=== PATIENT | male | born 1970 | race Caucasian/White ===

== ENCOUNTER 2022-10-22 08:19 | Emergency (ER) | payer BC, SELFPAY ==
[2022-10-22 08:27] VITALS: BP 150/85; PULSE 106; RESP 20; TEMP 37.5; O2SAT 95; BMI 26.6
--- NOTE | 2022-10-22 08:51 | ED_ITS ---
HPI - General Adult General Chief complaint: Fever Stated complaint: extremely hot / cold Time Seen by Provider: 10/22/22 08:26 Source: patient Mode of arrival: ambulatory Limitations: no limitations History of Present Illness HPI narrative: 52-year-old male coming in today concerned that ?my internal thermometer is off?. He states that for about 1 week now he has been cycling between feeling hot and sweaty and having the chills. Does not happen every day he says, however has occurred on most days. He states that he gets really chilled right before bed so he covers up and then wakes up in a pool of sweat. This also occurs during the day when he feels very cold and then feels very hot. He states that his appetite has been normal, no weight changes. He denies any skin or hair changes. He denies nausea or vomiting. No cough or chest pain. He denies any abdominal discomfort. He denies any difficulty with urination. No changes in his bowel habits. He states that he sees a doctor regularly has g enerally been healthy. He does not take any medications. He denies any family history of illnesses that he is aware of, states that parents and grandparents have all been very healthy. He denies any drug use including tobacco. States that aside from waking up drenched in sweat his sleep has been normal. He denies any recent traveling. Has had a leg surgery in the past for a broken leg when he was in [place], no other surgeries. Related Data Allergies Allergy/AdvReac Type Severity Reaction Status Date / Time No Known Drug Allergies Allergy Verified 10/22/22 08:27 Review of Systems Status of ROS: Reports: 10 or more systems reviewed and unremarkable except as noted in History and below [facility] Social History Smoking Status: Never smoker Do you use any of these nicotine containing products: None Second hand tobacco smoke exposure: No How often do you have a drink containing alcohol: 2-3 times a week How many standard drinks containing alcohol do you have on a typical day: 1 or 2 How often do you have six or more drinks on one occasion: Monthly AUDIT-C Alcohol total score: 5 Non-prescribed substance use: denies use service: No Exam Narrative: Exam Narrative: Well-nourished well-developed patient in no acute distress. Alert and oriented. Answers questions appropriately. Mood and affect are appropriate. Thoughts are goal oriented and rational. No tangential or magical thinking noted. Patient speaks in full sentences without needing to catch their breath. HEENT: Normocephalic atraumatic. Pupils are equally round reactive to light. Extraocular muscles are intact. Conjunctivae are moist without any icterus noted. Moist mucous membranes. Posterior pharynx is normal. Neck is soft without any lymphadenopathy or thyromegaly. No masses are appreciated. Cardiovascular: Heart is regular rate and rhythm S1 and S2 are present without any murmurs. Lungs: Clear to auscultation bilaterally no wheezes rhonchi or rales are appreciated. Patient takes deep breaths without any discomfort. Abdomen: Soft and nontender nondistended with normal bowel sounds. No guarding or rebound. No masses or organomegaly appreciated. Extremities: Bilateral lower extremities are without edema. Normal DP and PT pulses. Skin: Well perfused without any obvious rashes. Const: Vital Signs, click to edit/add: Vital Signs - 24 hr 10/22/22 08:27 10/22/22 09:13 10/22/22 09:15 Temperature 99.5 F 99.5 F Pulse Rate [Pulse Oximeter] 106 H 80 Respiratory Rate 20 20 Blood Pressure 126/82 Blood Pressure [Le ft Upper Arm] 150/85 H Blood Pressure [Ri ght Arm] 126/82 Pulse Oximetry 95 95 Oxygen Delivery Me thod Room Air Room Air 10/22/22 09:30 Temperature Pulse Rate [Pulse Oximeter] Respiratory Rate Blood Pressure 135/83 Blood Pressure [Le ft Upper Arm] Blood Pressure [Ri ght Arm] Pulse Oximetry Oxygen Delivery Me thod Course Course Hospital Course: Labs were drawn. Sodium slightly low therefore IV fluids were started. Remainder of lab work unremarkable aside from elevated CRP and sed rate. Patient remained hemodynamically stable. Vital Signs Vital signs: Initial Vital Signs Temperature 99.5 F 10/22/22 08:27 Temperature Source Temporal Artery Scan 10/22/22 08:27 Pulse Rate 106 H 10/22/22 08:27 Pulse Rhythm Regular 10/22/22 08:27 Respiratory Rate 20 10/22/22 08:27 Blood Pressure 150/85 H 10/22/22 08:27 Blood Pressure Mean 106 H 10/22/22 08:27 Blood Pressure Position Supine 10/22/22 08:27 Pulse Oximetry 95 10/22/22 08:27 Oxygen Delivery Method Room Air 10/22/22 08:27 Vital Signs Temperature 99.5 F 10/22/22 08:27 Pulse Rate 106 H 10/22/22 08:27 Respiratory Rate 20 10/22/22 08:27 Blood Pressure 150/85 H 10/22/22 08:27 Pulse Oximetry 95 10/22/22 08:27 Oxygen Delivery Method Room Air 10/22/22 08:27 Temperature 99.5 F 10/22/22 09:13 Pulse Rate 80 10/22/22 09:13 Respiratory Rate 20 10/22/22 09:13 Blood Pressure 135/83 10/22/22 09:30 Pulse Oximetry 95 10/22/22 09:13 Oxygen Delivery Method Room Air 10/22/22 09:13 Medical Decision Making MDM Narrative Medical decision making narrative: 52-year-old male with episodes of chills and diaphoresis, elevated inflammatory markers. Question viral infection. Tick-borne illness, lines these in [facility] pending. We discussed hydration and rest in the meantime. We discussed reasons for follow-up. Patient was in agreement had no other questions. Lab Data Lab results reviewed: Yes I reviewed the patient's lab results Labs: Lab Results 10/22/22 10/22/22 Range/Units 08:56 09:05 WBC 9.62 (4.50-11.00) K/uL RBC 4.47 (4.30-5.90) m/uL Hgb 12.6 L (13.5-17.5) gm/dL Hct 38.0 (37.0-53.0) % MCV 85 (80-100) fL MCH 28 (26-34) pg MCHC 33 (32-36) gm/dL RDW Coeff of Raz 12.2 (11.5-15.5) % Plt Count 436 (140-440) K/uL Neut % (Auto) 83.9 H (42.0-72.0) % Lymph % (Auto) 8.7 L (20-44) % [place] % (Auto) 6.8 (0.0-11.0) % Eos % (Auto) 0.3 (0.0-7.0) % Baso % (Auto) 0.1 (0.0-3.0) % Neut # (Auto) 8.10 H (1.7-7.0) K/uL Lymph # (Auto) 0.80 L (0.90-2.90) K/uL [place] # (Auto) 0.70 (0.00-0.90) K/UL Eos # (Auto) 0.03 (0.00-0.50) K/uL Baso # (Auto) 0.01 (0.00-0.30) K/uL ESR 85 H (2-15) mm/hr Sodium 132 L (135-149) mmol/L Potassium 3.9 (3.6-5.1) mmol/L Chloride 97 (96-114) mmol/L Carbon Dioxide 25 (20-32) mmol/L BUN 7 (7-30) mg/dL Creatinine 0.6 (0.5-1.5) mg/dL Estimated Creat Clear 134.65 Estimated GFR 116 ml/min Glucose 159 H (60-115) mg/dL Lactate 1.1 (0.5-1.9) mmol/L Calcium 9.5 (8.4-10.6) mg/dL Total Bilirubin 0.9 (0.1-1.5) mg/dL Direct Bilirubin 0.3 (0.0-0.5) mg/dL AST 42 H (12-35) U/L ALT 38 (4-50) U/L Alkaline Phosphatase 91 (40-150) U/L C-Reactive Protein 8.1 H (0.5-1.0) mg/dL Total Protein 8.1 (6.0-8.3) g/dL Albumin 4.2 (3.3-5.0) g/dL TSH 2.080 (0.270-4.20) uIU/mL Urine Color Yellow (Yellow) Urine Appearance Clear (Clear) Urine pH 8.0 (5.0-8.5) Ur Specific Bern 1.015 (1.000-1.030) Urine Protein Trace A (Negative) Urine Glucose (UA) Negative (Negative) Urine Ketones Negative (Negative) Urine Blood Negative (Negative) Urine Nitrite Negative (Negative) Urine Bilirubin Negative (Negative) Urine Urobilinogen 0.2 (0.2-1.0) Ur Leukocyte Esterase Negative (Negative) Urine RBC 0-2 (0-2) Urine WBC 0-2 (0-5) Ur Squamous Epith Cells Few (None-Few) Urine Bacteria None (None) SARS-CoV-2 (PCR) Negative SARS-CoV-2 (Negative) Discharge Plan Discharge Clinical Impression: Diaphoresis, Hyponatremia Patient Disposition: Home, Self-Care Condition: Stable Additional Instructions: Stay well hydrated and get plenty of rest. This is likely a viral infection. This should pass in the next week or 2. If it does not, follow up with primary care provider. Lastly, your sodium was slightly low today and that was replaced with IV fluids. Follow Up/Referrals: Provider,Not a Local [Primary Care Provider] - Stand Alone Forms: Balloon Info Instructions
[2022-10-22 09:05] LABS: Appearance Urine Clear (Clear); Bilirubin Urine Negative (Negative); Blood Urine Negative (Negative); Color Urine Yellow (Yellow); Glucose Urine Negative (Negative); Ketones Urine Negative (Negative); Leukocyte Esterase Urine Negative (Negative); Nitrite Urine Negative (Negative); Protein Urine Trace (Negative); Specific Gravity Urine 1.015 (1.000-1.030); Urobilinogen Urine 0.2 (0.2-1.0)
[2022-10-22 09:12] LABS: RBC Urine 0-2 (0-2); Squamous Epithelial Cell Urine Few (None-Few); WBC Urine 0-2 (0-5)
[2022-10-22 09:13] VITALS: BP 126/82; PULSE 80; RESP 20; TEMP 37.5; O2SAT 95
[2022-10-22 09:15] VITALS: BP 126/82
[2022-10-22 09:15] LABS: Lactate* 1.1 mmol/L (0.5-1.9)
[2022-10-22 09:21] LABS: Basophils Absolute Auto 0.01 K/uL (0.00-0.30); Basophils Percent Auto 0.1 % (0.0-3.0); Eosinophils Absolute Auto 0.03 K/uL (0.00-0.50); Eosinophils Percent Auto 0.3 % (0.0-7.0); Hemoglobin* 12.6 gm/dL (13.5-17.5); Immature Granulocytes Abs Auto 0.02 K/uL (0.00-0.30); Immature Granulocytes Pct Auto 0.2 %; Lymphocytes Percent Auto 8.7 % (20-44); Mean Corpuscular HGB Conc 33 gm/dL (32-36); Mean Corpuscular Hemoglobin 28 pg (26-34); Mean Corpuscular Volume 85 fL (80-100); Monocytes Percent Auto 6.8 % (0.0-11.0); Neutrophils Percent Auto 83.9 % (42.0-72.0); Platelet Count* 436 K/uL (140-440); RDW Coefficient of Variation % 12.2 % (11.5-15.5); Red Blood Count 4.47 m/uL (4.30-5.90); Slide Review Reflex No; White Blood Count* 9.62 K/uL (4.50-11.00)
[2022-10-22 09:30] VITALS: BP 135/83
[2022-10-22 09:36] LABS: Albumin* 4.2 g/dL (3.3-5.0); Chloride* 97 mmol/L (96-114); Sodium* 132 mmol/L (135-149)
[2022-10-22 09:37] LABS: Potassium* 3.9 mmol/L (3.6-5.1)
[2022-10-22 09:38] LABS: Creatinine* 0.6 mg/dL (0.5-1.5); Est. Creatinine Clearance* 134.65; Estimated Glomerular Filt Rate 116 ml/min
[2022-10-22 09:39] LABS: Alanine Aminotransferase* 38 U/L (4-50); Alkaline Phosphatase* 91 U/L (40-150); Aspartate Amino Transferase* 42 U/L (12-35); Bilirubin Direct* 0.3 mg/dL (0.0-0.5); Bilirubin Total* 0.9 mg/dL (0.1-1.5); Blood Urea Nitrogen* 7 mg/dL (7-30); Carbon Dioxide* 25 mmol/L (20-32); Total Protein* 8.1 g/dL (6.0-8.3)
[2022-10-22 09:40] LABS: Calcium* 9.5 mg/dL (8.4-10.6); Glucose* 159 mg/dL (60-115)
[2022-10-22 09:42] LABS: C Reactive Protein* 8.1 mg/dL (0.5-1.0)
[2022-10-22 09:53] LABS: SARS PCR* Negative SARS-CoV-2 (Negative)
[2022-10-22] MEDS: 0.9 % SODIUM CHLORIDE 1000 ml 1,000 ML IV (09:56)
[2022-10-22 10:13] LABS: Erythrocyte SedimentationRate* 85 mm/hr (2-15)
[2022-10-22 11:14] VITALS: BP 150/85; PULSE 90; RESP 20; TEMP 37.5
[2022-10-24 05:21] LABS: Anaplasma phagocyt PCR Not Detected; Babesia microti by PCR Not Detected; Babesia species by PCR Not Detected; Ehrlichia chaffeensis by PCR Not Detected; Ehrlichia ewingii/canis by PCR Not Detected; Ehrlichia muris-like by PCR Not Detected
== END 2022-10-22 11:10 | disposition home or self-care (01) ==
PROVIDERS: Emergency Provider Family Medicine
DX: R61 Generalized hyperhidrosis (principal); E87.1 Hypo-osmolality and hyponatremia
CPT/HCPCS: 36415; 80048; 80076; 81001; 83605; 84443; 85025; 85651; 86140; 86789; 87040; 87086; 87635; 87798; 96360; 99284; J7030

== ENCOUNTER 2023-04-21 07:25 | Outpatient (CLI) | payer OTHER, SELFPAY | END 2023-04-21 07:26 | disposition home or self-care (01) | LOC: NFLDREF 04-23 06:41 | PROVIDERS: PCP Internal Medicine; Referring Provider Internal Medicine; Visit Provider Internal Medicine | DX: E78.1 Pure hyperglyceridemia (principal); E03.9 Hypothyroidism, unspecified; R61 Generalized hyperhidrosis | CPT/HCPCS: 80053; 80061; 84443; 86334 ==